=== PATIENT | female | born 1985 | race African-American/Black ===

== ENCOUNTER 2017-12-13 12:09 | Emergency (ER) | payer SELFPAY ==
[~2017-12-13] VITALS: Ht 152.4 cm; Wt 65.8 kg
[2017-12-13 12:19] VITALS: BP 119/67; Ht 152.4 cm; Wt 65.8 kg
[2017-12-13 13:39] LABS: UA SPECIFIC GRAVITY 1.025 (1.005-1.035); microscopic required? YES; urine erythrocyte 2+ (NEGATIVE)
[2017-12-13 13:53] LABS: AMPHETAMINE QUAL UR NONE DETECTED (NEG <=1000)
== END 2017-12-13 13:30 | disposition left against medical advice (07) ==
LOC: ED 12:09
PROVIDERS: Emergency Medicine
DX: N80.9 Endometriosis, unspecified (principal); R11.2 Nausea with vomiting, unspecified; R19.7 Diarrhea, unspecified
CPT/HCPCS: 83880; J0500; J7030

== ENCOUNTER 2018-01-17 01:17 | Emergency (ER) | payer MEDICAID ==
[~2018-01-17] VITALS: Ht 152.4 cm; Wt 65.1 kg
[2018-01-17 02:49] LABS: CALCIUM 8.2 mg/dL (8.5-10.1); CARBON DIOXIDE 21.1 mmol/L (21-32); CHLORIDE SERUM 110 mmol/L (98-107); CREATININE SERUM 0.7 mg/dL (0.6-1.0); GFR1 > 60 mL/min; GLUCOSE SERUM 93 mg/dL (74-106); POTASSIUM SERUM 3.6 mmol/L (3.5-5.1); SODIUM SERUM 143 mmol/L (136-145)
[2018-01-17 02:53] LABS: ALKALINE PHOSPHATASE 44 U/L (46-116); ALT/SGPT 16 U/L (14-59); AST/SGOT 26 U/L (15-37); BILIRUBIN TOTAL 0.54 mg/dL (0.20-1.00); LIPASE 90 IU/L (73-393); TOTAL PROTEIN, SERUM 6.7 g/dL (6.4-8.2)
[2018-01-17 02:54] LABS: ALBUMIN 3.3 g/dL (3.4-5.0)
[2018-01-17 02:56] LABS: PLATELET COUNT 300 x10^3mcL (130-400); RED CELL DISTRIBUTION WIDTH 12.7 % (11.5-14.5)
[2018-01-17 02:58] LABS: BASOPHIL % 3.5 % (0-2)
[2018-01-17 07:07] VITALS: BP 134/87
== END 2018-01-17 07:07 | disposition home or self-care (01) ==
LOC: ED 01:17
PROVIDERS: Emergency Medicine
DX: N39.0 Urinary tract infection, site not specified (principal); R19.7 Diarrhea, unspecified; Z88.6 Allergy status to analgesic agent
CPT/HCPCS: J2270; J2405; J3010